=== PATIENT | female | born 1955 | race Asian ===

== ENCOUNTER 2018-12-19 07:39 | Day surgery (SDC) | payer OTHER ==
[~2018-12-19] VITALS: Ht 172.7 cm; Wt 59.4 kg
[2018-12-19 08:19] VITALS: BP 122/78
[2018-12-19 12:58] VITALS: BP 118/68
== END 2018-12-19 11:35 | disposition home or self-care (01) ==
LOC: GI 07:39 → OR 10:30 → GI 11:35
DX: Z12.11 Encounter for screening for malignant neoplasm of colon (principal); K63.5 Polyp of colon; K63.89 Other specified diseases of intestine; F17.210 Nicotine dependence, cigarettes, uncomplicated; Z88.0 Allergy status to penicillin; Z90.49 Acquired absence of other specified parts of digestive tract; Z79.899 Other long term (current) drug therapy
CPT/HCPCS: 45378; 99153; J1200; J1610; J2250; J2310; J3010; J3490